=== PATIENT | male | born 1955 | race Caucasian/White ===

== ENCOUNTER → 2016-05-10 | Outpatient (CLI) | payer BC ==
[~2016-05-10] MED LIST: ACET-1256 PO; DIGECAP3 PO; GABA800T PO; IBUP-1050 PO; MELO15TA10 PO
[2016-05-10 10:55] LABS: BASO % 0.9 %; BASO ABS # 0.05 K/uL (0-0.2); COMPLETE YES; EOS % 3.1 %; HEMATOCRIT 43.5 % (42-52); IG% 0.2 %; LYMPH % 26.3 %; LYMPH ABS # 1.46 K/uL (1.2-3.4); MEAN CELL VOLUME 89.9 fL (80-100); MEAN CORPUSCULAR HEMOGLOBIN 30.2 pg (25-34); MEAN CORPUSCULAR HGB CONC 33.6 g/dl (32-36); MEAN PLATELET VOLUME 10.8 fL (7.4-10.4); MONO % 11.9 %; NEUT % 57.6 %; PLATELET COUNT 215 K/uL (130-400); RED BLOOD COUNT 4.84 M/uL (4.7-6.1); WHITE BLOOD COUNT 5.56 K/uL (4.8-10.8)
[2016-05-10 11:29] LABS: ALT/SGPT 21 U/L (12-78); AST/SGOT 18 U/L (15-37); BLOOD UREA NITROGEN 16 mg/dl (7-18); BUN/CREATININE RATIO 14.6 (10-20); CALCIUM 8.5 mg/dl (8.5-10.1); CARBON DIOXIDE 27 mmol/L (21-32); CHLORIDE 108 mmol/L (98-107); GLUCOSE 98 mg/dl (70-99); SODIUM 142 mmol/L (136-145)
[2016-05-10 11:40] LABS: ALKALINE PHOSPHATASE 94 U/L (45-117); CHOLESTEROL 146 mg/dl (0-200); CHOLESTEROL/HDL RATIO 3.3; HDL CHOLESTEROL 44 mg/dl; LDL CHOLESTEROL CALCULATED 85 mg/dl; TRIGLYCERIDES 84 mg/dl (0-150); VERY LOW DENSITY LIPOPROT CALC 17 mg/dl
== END | disposition home or self-care (01) ==
LOC: C.LABBC 08:38
PROVIDERS: ATTEND Nurse Practitioner Adult Health
DX: Z11.59 Encounter for screening for other viral diseases (principal); F32.9 Major depressive disorder, single episode, unspecified; F17.210 Nicotine dependence, cigarettes, uncomplicated; Z13.220 Encounter for screening for lipoid disorders

== ENCOUNTER → 2016-07-23 | Outpatient (CLI) | payer BC ==
[2016-07-23 13:34] LABS: BASO % 0.7 %; BASO ABS # 0.04 K/uL (0-0.2); COMPLETE YES; EOS % 2.4 %; HEMATOCRIT 43.8 % (42-52); IG% 0.2 %; LYMPH % 25.1 %; LYMPH ABS # 1.46 K/uL (1.2-3.4); MEAN CELL VOLUME 92.4 fL (80-100); MEAN CORPUSCULAR HEMOGLOBIN 29.7 pg (25-34); MEAN CORPUSCULAR HGB CONC 32.2 g/dl (32-36); MEAN PLATELET VOLUME 10.4 fL (7.4-10.4); MONO % 11.5 %; NEUT % 60.1 %; PLATELET COUNT 228 K/uL (130-400); RED BLOOD COUNT 4.74 M/uL (4.7-6.1); WHITE BLOOD COUNT 5.81 K/uL (4.8-10.8)
[2016-07-23 14:20] LABS: BLOOD UREA NITROGEN 16 mg/dl (7-18); BUN/CREATININE RATIO 14.3 (10-20); CARBON DIOXIDE 26 mmol/L (21-32); CHLORIDE 110 mmol/L (98-107); GLUCOSE 93 mg/dl (70-99); MAGNESIUM 2.4 mg/dl (1.8-2.4); SODIUM 144 mmol/L (136-145)
[2016-07-23 14:48] LABS: CALCIUM 8.6 mg/dl (8.5-10.1)
== END | disposition home or self-care (01) ==
LOC: C.LABBC 11:00
PROVIDERS: ATTEND Nurse Practitioner Family
DX: R07.89 Other chest pain (principal)

== ENCOUNTER → 2016-08-10 | Outpatient (CLI) | payer BC ==
--- NOTE | 2016-08-10 09:24 | DIAGNOSTIC IMAGING REPORT ---
THORACIC SPINE 3 VIEWS HISTORY: M54.9 Mid back painPt with c/o mid back pain, at intrascapular l COMPARISON: None. FINDINGS: There is no fracture. No subluxation. Flowing anterior osteophytes throughout the thoracic spine. Mild degenerative disc disease throughout the thoracic spine. Paraspinal soft tissues are unremarkable. IMPRESSION: No fracture or subluxation within the thoracic spine. Electronically signed by: Harvinder Cerda M.D. 08/10/2016 9:23 AM Dictated Date/Time: 08/10/2016 9:21 AM
== END | disposition home or self-care (01) ==
LOC: C.RADBC 08:40
PROVIDERS: ATTEND Family Medicine
DX: M54.9 Dorsalgia, unspecified (principal)

== ENCOUNTER → 2017-09-22 | Outpatient (CLI) | payer BC ==
[2017-09-22 10:04] LABS: BASO % 0.5 %; BASO ABS # 0.03 K/uL (0-0.2); EOS ABS # 0.12 K/uL (0-0.5); HEMOGLOBIN 14.3 g/dL (14.0-18.0); IG# 0.01 K/uL (0.00-0.02); LYMPH % 22.1 %; LYMPH ABS # 1.32 K/uL (1.2-3.4); MEAN CELL VOLUME 93.7 fL (80-100); MEAN CORPUSCULAR HEMOGLOBIN 31.2 pg (25-34); MEAN CORPUSCULAR HGB CONC 33.3 g/dl (32-36); MEAN PLATELET VOLUME 10.6 fL (7.4-10.4); MONO % 16.9 %; MONO ABS # 1.01 K/uL (0.11-0.59); NEUT % 58.3 %; NEUT ABS # 3.47 K/uL (1.4-6.5); PLATELET COUNT 200 K/uL (130-400); RED CELL DISTRIBUTION WIDTH CV 13.3 % (11.5-14.5); RED CELL DISTRIBUTION WIDTH SD 45.7 fL (36.4-46.3); WHITE BLOOD COUNT 5.96 K/uL (4.8-10.8)
== END | disposition home or self-care (01) ==
LOC: C.LAB 09:16
PROVIDERS: ATTEND Family Medicine
DX: M79.1 Myalgia (principal)

== ENCOUNTER → 2017-09-26 | Outpatient (CLI) | payer BC ==
[2017-09-26 13:03] LABS: BLOOD UREA NITROGEN 20 mg/dl (7-18); CALCIUM 8.9 mg/dl (8.5-10.1); CARBON DIOXIDE 24 mmol/L (21-32); CREATININE 1.04 mg/dl (0.60-1.40); GLUCOSE 108 mg/dl (70-99); POTASSIUM 4.3 mmol/L (3.5-5.1); SODIUM 137 mmol/L (136-145)
== END | disposition home or self-care (01) ==
LOC: C.LAB 10:37
PROVIDERS: ATTEND Family Medicine
DX: R74.8 Abnormal levels of other serum enzymes (principal)

== ENCOUNTER 2020-04-08 06:51 | Observation (INO) ==
--- NOTE | 2020-03-11 12:14 | Anesthesiology Consultation ---
Date of Service March 11, 2020 Assessment & Plan (1) Encounter for pre-operative examination: Chart Review Chart Review: Acceptable Risk for Surgery (pending preop Covid testing ) and Patient NOT seen in Pre Admission Testing Pt scheduled for bilateral knee replacements -Will leave to anesthesiologist discrection AM of surgery if repeat CXR needed secondary to Feb 2020 chest CTA findings - at PCP appt after CTA patient denied any significant breathing symptoms. Per nursing assessment 03/11/2020, patient denies any recent travel. No known Covid positive contacts or Covid related symptoms. Pt denies known Covid infection in the past 90 days. Pt scheduled for preop Covid testing 04/01/20= will await results. Seen by PCP 03/10/20= pt seen for right LE swelling. Was in the ER on 03/06/20 due to the leg swelling. CTA of chest negative for PE but did show some findings suggestive on bronchitis or reactive airway disease- pt denies any breathing issues or wheezing. No DVT noted but ultrasound did show probably complex Bakers cyst with leaking component. PCP recommends patient follow up with ortho- aware of upcoming knee surgery. Recommended elevation for right LE swelling. History Surgery Operation Date: 04/08/20 08:50 Proposed Procedures p Bilateral Total Knee Arthroplasty - Israel Retana MD Height/Weight Height: 5 ft 7 in Weight: 75.296 kg Allergies Allergy/AdvReac Type Severity Reaction Status Date / Time ragweed pollen Allergy Mild Congestion Verified 03/10/20 08:01 Sulfa (Sulfonamide Allergy Mild Pruritus, Verified 03/10/20 08:01 Antibiotics) anxiety Medications Home Medications Medication Instructions Recorded Confirmed Last Taken Lactobacillus 1 cap PO DAILY cap 07/27/18 03/11/20 Unknown acidophilus-Bifidobac.animalis 31 billion cell capsule diclofenac sodium 75 mg 75 mg PO Q12H #60 tab 06/08/19 03/11/20 Unknown tablet,delayed release gabapentin 800 mg tablet 800 mg PO TID #270 tab 10/17/19 03/11/20 Unknown Wheeled Walker #1 ea 01/21/20 03/11/20 Unknown ipratropium bromide 0.03 % nasal 2 spray INTRANASAL TID #90 ml 01/31/20 03/11/20 Unknown spray bupropion HCl 300 mg 24 hr tablet, 300 mg PO DAILY #90 tab 02/05/20 03/11/20 Unknown extended release tramadol 50 mg tablet 50 mg PO BID PRN #60 tab 02/11/20 03/11/20 Unknown ciclopirox 8 % topical solution 1 applic TOPICAL DAILY 28 Days 03/10/20 03/11/20 Unknown #6.6 ml triamcinolone acetonide 0.1 % 1 applic TOPICAL BID #15 g 03/10/20 03/11/20 Unknown topical cream Past Medical History Medical History ADHD (attention deficit hyperactivity disorder), combined type Allergic rhinitis Anxiety and depression BPH (benign prostatic hyperplasia) occasional incontinence Cervical spondylolysis Disc degeneration, lumbar Hearing difficulty of both ears History of IBS Sciatic leg pain on gabapentin Past Family History Family History Mother Alzheimer disease Low back pain associated with a spinal disorder other than radiculopathy or spinal stenosis Father Cardiac disorder Other No family history of adverse response to anesthesia Denies family history of Colon cancer Ovarian cancer Prostate cancer Myocardial infarction Breast cancer Past Surgical History Surgical History History of appendectomy History of colonoscopy History of herniorrhaphy right inguinal hernia repair (done with appe) Social History Smoking Status: Former smoker tobacco type: cigarettes Do You Dip or Chew Tobacco: No Smoking End Date: quit 12/2019 Hx Alcohol Use: Yes Alcohol type: beer, wine and hard liquor alcohol intake frequency: 0-2 drinks per day Alcohol Intake Frequency Comment: 1.5 drinks daily Hx Substance Use: No substance use type: does not use Testing Laboratory Results Laboratory Tests 03/06/20 03/06/20 03/06/20 19:14 19:14 21:13 WBC 5.28 Hgb 13.9 L Hct 42.7 Plt Count 221 PT 10.4 INR 1.0 APTT 29.6 Sodium 141 Potassium 4.0 Chloride 110 H Carbon Dioxide 29 BUN 19 H Creatinine 0.95 Glucose 102 H Electrocardiogram Date: 03/06/20 Findings: + NSR @ (68 bpm) Nonspecific T wave abnormality. Chest X-Ray Date: 01/21/20 Mild interstitial thickening at the lung bases. This is likely chronic. Otherwise, lungs are clear. No pleural effusions. No pneumothorax. Mild cardiomegaly. Other Testing Chest CTA 03/06/20= Mild cardiomegaly without evidence of pulmonary emboli. Bronchial wall thickening suggestive of bronchitis versus reactive airway disease. Mild mediastinal and hilar adenopathy, likely on a reactive basis.
--- NOTE | 2020-04-05 12:08 | History and Physical Report ---
DATE OF ADMISSION: 04/08/2020 CHIEF COMPLAINT: Bilateral knee pain and discomfort. HISTORY OF PRESENT ILLNESS: The patient is a 64-year-old gentleman who presents specifically for surgical treatment of both knees. He has got a long history of bilateral knee pain and discomfort followed by my partner, Dr. Stack and then more recently by myself. He has been managing this with oral medicines which have become less successful over time. He did develop some purpura and had to go off of it. Pain has just gotten worse. He has had injections which provided very temporary relief only. He has had trouble maintaining any degree of meaningful and active lifestyle due to his pain. The right knee is a little bit more painful than the left, but both are significantly debilitating. No groin pain. No fevers. PAST MEDICAL HISTORY: History of sciatica. PAST SURGICAL HISTORY: Include: 1. Herniorrhaphy. 2. Appendectomy. ALLERGIES: SULFA. CURRENT MEDICATIONS: Include: 1. Bupropion. 2. Diclofenac. 3. Gabapentin. 4. Ipratropium. 5. Lactobacillus. 6. Tramadol. SOCIAL HISTORY: This is a 64-year-old male. He is from [place]. Six drinks per week. Does not smoke. FAMILY HISTORY: Noncontributory. REVIEW OF HISTORY: Negative for diabetes, neurologic problem, vascular problems or bleeding disorders. No chest pain or shortness of breath. No history of DVT or PE. No known bleeding problems. PHYSICAL EXAMINATION: GENERAL: Shows a pleasant, middle-aged male, looks to be in excellent health. HEENT: Benign. NECK: Supple, no lymphadenopathy. LUNGS: Clear to auscultation. HEART: Regular rate and rhythm. ABDOMEN: Soft, nontender, nondistended. EXTREMITIES: Grossly neurovascularly intact except as follows. Examination of both knees reveals the patient ambulates with a varus alignment to his knees with varus thrust bilaterally. Examination of the left knee reveals varus deformity. He has got bony hypertrophy medially. Some moderate knee effusion. Range of motion is 5-120. No instability. No pain with hip motion. Examination of the right knee reveals similar varus deformity. He has got bony hypertrophy medially. Small knee effusion. Range of motion is 10-120. No instability. X-RAYS: X-rays of both knees were reviewed. Shows advanced bilateral knee DJD. He has got complete loss of his medial joint space. He has got some fragmentation in AVN, changes of the medial femoral condyle in both knees. He has got some chronic tibial subluxation suggestion of a chronic ACL tear. 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 He has failed conservative treatment and would like to have both knees replaced. He does have a history of purpura, but is taking NSAIDs regardless. No known bleeding problems. PLAN: We are going to take him to the operating room and do bilateral knee replacements. The risks and benefits of this procedure were explained to the patient including but not limited to DVT, PE, , infection, neurological injury, vascular injury, bleeding problems, pain, persistent pain, need for revision surgery in the future, fracture, leg length inequality, nerve palsy, etc. The patient understands and desires to proceed. Informed consent was obtained. We will likely try some Toradol postoperatively. We will have to keep an eye on this purpura issue. He is planning to be discharged to home and do outpatient therapy. He has a lady who works at [employer] that may do some in-home therapy.
[~2020-04-08 06:51] MED LIST changes: -ACET-1256 PO; +ACETAMINOPHEN 500 MG TAB PO SCH; +BUPIVACAINE 0.5 % 5 MG/1 ML PF 10ML VIAL ONE; +BUPIVACAINE LIPOSOME/PF 266 MG, BUPIVACAINE/EPINEPHRINE 50 ML, SODIUM CHLORIDE 0.9% 30 ... INFIL SCH; -DIGECAP3 PO; +EPINEPHrine INJ 1 MG/ML AMP ONE; +FAMOTIDINE 20 MG TAB PO SCH; -GABA800T PO; +GABAPENTIN 300 MG CAP PO SCH; -IBUP-1050 PO; +LR 500ML BOLUS, THEN 15ML/HR IV SCH; +LR 60ML/HR IV SCH; -MELO15TA10 PO; +METOCLOPRAMIDE HCL 10 MG TABLET PO SCH; +ROPIVACAINE 0.5% 5 MG/ML 30 ML VIAL ONE; +TRANEXAMIC ACID 1,000 MG **IV Intra-op IV SCH; +ceFAZolin 2000MG 2,000 MG/15 ML SYR IV SCH
[2020-04-08] MEDS ORDERED: PROPOFOL IV EMULSION 10 MG/ML 20 ML VIAL IV ONE (08:17)
[2020-04-08] MEDS ORDERED: MIDAZOLAM HCL 1 MG/ML 2ML VIAL ONE ×2 (08:18→10:24)
[2020-04-08] MEDS ORDERED: ePHEDrine sulfate 50 MG/ML AMP IV PRN (08:28)
[2020-04-08] MEDS ORDERED: PHENYLEPHRINE 100MCG/ML 5ML SYR IV PRN (08:28)
[2020-04-08] MEDS ORDERED: ATROPINE SULFATE 0.1 MG/ML 10ML SYR IV PRN (08:28)
[2020-04-08] MEDS ORDERED: fentaNYL citrate 100 MCG/2 ML VIAL IV PRN (08:28)
[2020-04-08] MEDS ORDERED: MEPERIDINE HCL 25 MG/ML CARP/VIAL IV PRN (08:28)
[2020-04-08] MEDS ORDERED: ONDANSETRON INJ 2 MG/ML 2 ML VIAL IV PRN ×2 (08:28→14:42)
[2020-04-08] MEDS ORDERED: HYDROmorphone INJ 1 MG/ML SYRINGE IV PRN (08:28)
[2020-04-08] MEDS ORDERED: LABETALOL HCL IV 5 MG/ML 20ML IV PRN (08:28)
[2020-04-08] MEDS ORDERED: ROPIVACAINE 0.5% 5 MG/ML 30 ML VIAL ONE (08:45)
--- NOTE | 2020-04-08 08:48 | History & Physical Bridge Note ---
Date of Service April 08, 2020 History & Physical Bridge Note I have examined the patient, reviewed the History & Physical and in the interval since the performance of the History & Physical I have noted the following changes of clinical significance: no changes noted
[2020-04-08] MEDS ORDERED: SODIUM CHLORIDE 0.9% PF 50 ML VIAL ONE (08:57)
[2020-04-08] MEDS ORDERED: EPINEPHrine INJ 1 MG/ML AMP ONE ×2 (08:58→09:28)
[2020-04-08] MEDS ORDERED: BUPIVACAINE 0.25% 30 ML VIAL ONE (08:58)
[2020-04-08] MEDS ORDERED: BACITRACIN INJ 50,000 UNIT VIAL ONE ×2 (08:58)
[2020-04-08] MEDS ORDERED: BUPIVACAINE LIPOSOME 1.3% 266 MG/20 ML VIAL ONE (08:58)
[2020-04-08] MEDS ORDERED: fentaNYL citrate 100 MCG/2 ML VIAL ONE (10:31)
--- NOTE | 2020-04-08 12:46 | Post Operative Brief Note ---
PG Immediate Post Op with CF Date of Surgery April 08, 2020 Pre & Post Diagnosis Operation Date: 04/08/20 08:50 Pre-Op Diagnosis: Bilateral Knee Advanced Degenerative Joint Disease Post-Op Diagnosis: Bilateral Knee Advanced Degenerative Joint Disease I identified the patient and participated in the time-out.: Yes Procedure Operation Date: 04/08/20 08:50 Actual Procedures p Bilateral Total Knee Arthroplasty(Bilateral) - Israel Retana MD Surgeon Israel Retana MD Fire Control Mechanic KIERSTEN Blue Estimated Blood Loss 200 Findings Consistent with Post-Op Diagnosis Fluids 1300 cc Specimens Specimen Description: A. Left Knee Bone and Tissue B. Right Knee Bone and Tissue Drains Burgos Catheter Anesthesia Type Spinal MAC Complications none Disposition Accompanied Patient To Recovery: No Disposition: Recovery Room
--- NOTE | 2020-04-08 13:07 | Anesthesiology Progress Note ---
Date of Service April 08, 2020 Anesthesia Post Procedure Vital Signs Vital Signs: Temp Pulse Pulse Resp BP Pulse Ox 04/08/20 13:00 60 17 113/72 97 04/08/20 12:50 63 15 107/78 100 04/08/20 12:41 36.2 C L 59 L 16 88/60 L 100 04/08/20 07:16 36.7 C 72 18 117/76 97 Pain Intensity Bilateral Knee: Pain Intensity: 0 Transfer of Care Handoff Completed per policy Notes Mental Status: alert / awake / arousable Patient Amnestic to Procedure: Yes Nausea / Vomiting: adequately controlled Pain: adequately controlled Airway Patency, RR, SpO2: stable & adequate BP & HR: stable & adequate Hydration State: stable & adequate Neuraxial Anesthesia: was administered and sensory block is resolving Anesthetic Complications: no major complications apparent and Pt Satisfied with anesthetic care
--- NOTE | 2020-04-08 13:13 | Operative Report ---
Post Operative Report Pre & Post Diagnosis Operation Date: 04/08/20 08:50 Pre-Op Diagnosis: Bilateral Knee Advanced Degenerative Joint Disease Post-Op Diagnosis: Bilateral Knee Advanced Degenerative Joint Disease I identified the patient and participated in the time-out.: Yes Procedure Operation Date: 04/08/20 08:50 Actual Procedures p Bilateral Total Knee Arthroplasty(Bilateral) - Israel Retana MD Surgeon Israel Retana MD Bods Developer KIERSTEN Blue Estimated Blood Loss 200 Findings Consistent with Post-Op Diagnosis Operative findings revealed advanced bilateral knee DJD. He had extensive grade 4 [id number] disease of the medial compartments of both knees with fixed varus deformities and about 10 degree flexion contractures bilaterally. He had very stiff knees. Osteophytes in all 3 compartments. Moderate-sized effusion bilaterally. Fluids 1300 cc. Specimens Bilateral knee sent for pathology. Drains None. Anesthesia Type Spinal MAC Complications none Disposition Accompanied Patient To Recovery: No Disposition: Recovery Room Indications Patient is a 65-year-old gentleman said a long history of bilateral knee pain discomfort and deformity has got really gotten worse over the years. He failed all conservative measures. X-ray showed advanced bilateral knee DJD. He was strongly desiring to have both knees done at the same time. Description of Procedure Left sided operative implants consist of: 1. Biomet Vanguard size 65 left posterior stabilized femoral component. 2. Biomet size 71 tibial tray. 3. 12 mm posterior stabilized polyethylene insert. 4. 31 x 8 all polypatella. Right side implants consisted of: 1. Biomet Vanguard size 67.5 right posterior stabilized femoral component. 2. Biomet size 71 tibial tray. 3. 10 mm posterior stabilized polyethylene insert. 4. 31 x 8 all polypatella. The patient was taken to the operating room identified placed on the operating table supine position but all contact areas were properly padded IV antibiotics tried by anesthesia team. A spinal anesthetic and abductor canal blocks were provided holding area. A Burgos catheter was placed in sterile fashion. Bilateral thigh tourniquet was placed in both lower extremities and prepped draped in usual sterile fashion. Attention was first drawn to the left leg. Left leg was elevated exsanguinated with use of an Esmarch and tourniquet placed at 300 mmHg. An anterior approach left knee was then performed through longitudinal incision centered over the patella. Sharp dissection was got through subcutaneous tissue down to the extensor mechanism. A medial parapatellar arthrotomy incision was made. Subperiosteal dissection was carried out medially. He had a chronic ACL deficiency and we had a very tight posterior medial side so we did release quite a bit of the medial and posterior medial tibia. The fat pad was resected beneath patella tendon. The ACL was absent. The PCL was released from the distal femur and the tibia subluxated anteriorly. The external tibial alignment jig was then placed in the interface the tibia and adjusted 14 mm medially. Proximal tibial cut was made a millimeter or 2 above the most deficient aspect of the posterior medial tibial plateau. He had a lot of posterior medial wear. Some large osteophytes were taken off medially. The tibia sized to a size 71 in order to get proper tibial rotation. Attention drawn the femur. The distal femur then with a sharp drop with intramedullary canal was suction. A left 6 degree valgus cutting guide was placed. Distal femoral cutting block was pinned in place. Distal femoral cut was made to take an additional 3 mm of bone off distal femur. The femur was then sized to a size 65. The AP cutting block was pinned parallel to the epicondylar axis which was 5 degrees of external rotation. The anterior cut, anterior chamfer, posterior cut, posterior chamfer cuts were made. Box cutting guide was placed in just slight lateral and the box cut was made. The knee was flexed. The remnants of the medial lateral menisci were excised. The osteophytes were taken off the posterior aspect the femur. Trial femoral component was placed for the tibial tray was pinned in maximum external rotation and the drill and stem punch used to create defect in proximal tibia for the tibial tray. Knee was then trialed and the 12 mm insert fit most appropriately. Attention drawn the patella. The patella was cleaned of all soft tissue. Patella thickness measured 25 mm in thickness cut down to 15. Was sized to a size 31 patella. The lug holes were drilled for 31 patella. The lateral osteophyte is moved. Patella button was placed. Knee was taken through range of motion patella tracked nicely with no thumbs test. Attention turned to placing permanent components. All trial components were removed. A bone plug was placed in the distal femur limit blood loss. L batch Palacos G cement was mixed. Beautified[place]ale size 65 left posterior stabilized femoral component, size 71 tibial tray, 12 mm posterior stabilized polyethylene insert, and a 31 x 8 all polypatella then cemented in place. Knee was brought out in full extension total cement hardened. Final cement check was then performed. Pericapsular tissues were injected with total of 50 cc of a combination of 20 cc of Exparel, 15 cc of normal saline, 25 cc of half percent Marcaine with epinephrine. Patient did receive 1 g tranexamic acid. The tourniquet was then let down for a left-sided tourniquet time 59 minutes. Hemostasis assured use electrocautery. The extensor mechanism closed with combination 1 PDS suture #1 Vicryl suture in a f [id number] fashion. Extensor mechanism checked found to be intact the subcutaneous tissue then closed with 2 Dexon suture buried nerve fascia skin was closed skin declan. Leg was then cleaned and dried and sterile dressing both Xeroform, 4 x 4's, sterile cast padding and Carmine bandage were applied. During closure of the subcutaneous tissues and skin of the left knee a similar procedure was begun on the right leg. The right leg was only exsanguinated with use of Esmarch interspace at 300 mmHg. An anterior approach to the right knee was then performed to longitudinal incision centered over the patella. Sharp dissection was carried through subcutaneous tissue down the extensor mechanism. A medial parapatellar arthrotomy incision was made. Extensive dissection was carried out medial and posterior medially due to his flexion contracture and his fixed varus deformity. The fat pad was resected from each patella tendon. Lateral patellofemoral ligament was released. Patella was subluxated laterally and the knee was flexed. The ACL was absent. The the PCL was released from distal femur. The tibia subluxated anteriorly. The external tibial alignment jig was then placed in the interface the tibia and adjusted 14 mm medially. Proximal tibial cut was made a little above the most deficient aspect medial till plateau. Some large osteophytes were taken off medial and posterior medially. Tibia sized to a size 71. Attention drawn the femur. The distal femur stem with a sharp drill. Intramedullary canal was suction. A right 6 degree valgus cutting guide was placed. Distal femoral cutting block was pinned in place. Distal femoral cut was made to take an additional 3 mm of bone off distal femur. The femur was then sized to a size 67.5. The AP cutting block was pinned parallel to the epicondylar axis which was 4 degrees of external rotation. Anterior cut, anterior chamfer, posterior cut, posterior chamfer cuts were made. Box cutting guide was placed in a just slight lateral box cut was made. The knee was flexed. The remnants of the medial lateral menisci were excised. The osteophytes were taken off the posterior aspect of the femur. A trial femoral component was placed. The tibial tray was pinned in maximum external rotation and the drill and stem punch were used to create defect in proximal to for the tibial tray. Knee was then trialed the 10 mm insert fit most appropriately. Attention drawn the patella. Patella was cleaned of all soft tissue. Patella thickness measured 24 mm in thickness was cut down to 15. Was sized to a size 31 patella. Lug holes were drilled for 31 patella. The lateral osteophyte is moved. Patella button was placed. Knee was taken through range of motion patella tracked nicely with no thumbs test. Attention drawn to placing the permanent components. All trial components removed. Bone plug was placed in the distal femur limit blood loss put a double batch Palacos G cement was mixed. Biomet Vanguard size 67.5 right posterior stabilized femoral component, size 71 tibial tray, a 10 mm posterior stabilized polyethylene insert, and a 31 x 8 all polypatella then cemented in place. The knee was brought out in full extension total cement hardened. Final cement check was then performed. Pericapsular tissues were injected with 50 cc of combination 10 cc of Exparel, 15 cc of normal saline, 25 cc of half percent Marcaine with epinephrine. The tourniquet on this side was let down. The wound was irrigated. Hemostasis assured use electrocautery. Extensor mechanism closed with combination 1 PDS suture #1 Vicryl suture in [id number] fashion. Extensor mechanism checked found to be intact the subcutaneous tissue then closed with 2 Dexon suture in a buried and fashion skin was closed with skin declan. A sterile dressing composed Xeroform, 4 x 4's, sterile cast padding, Carmine bandage were applied. Patient was then transferred to the recovery room in stable condition. Patient tolerated the procedure well and no complications. Satnam Blue, my physician medical billing assistant, was present for the entire procedure. His assistance was essential and required for appropriate patient positioning, pre pping and draping, surgical exposure, performing the technical details of the operation, placement the implants, closure of the wound, and placement of the sterile bandage. I attest to the content of the Intraoperative Record and any orders documented therein. Any exceptions are noted below.
--- NOTE | 2020-04-08 13:30 | XRay Report ---
RIGHT KNEE 2 VIEWS History: Right total knee arthroplasty. Degenerative arthritis. Postop. FINDINGS: The patient is status post a right total knee arthroplasty. The hardware is intact. No frac ture or dislocation. Skin declan are in place. IMPRESSION: Right total knee arthroplasty. No evidence for hardware complication. ACT 112: Negative or not required by law. Electronically signed by: Harvinder Cerda M.D. 04/08/2020 1:28 PM
--- NOTE | 2020-04-08 13:30 | XRay Report ---
LEFT KNEE 2 VIEWS History: Left total knee arthroplasty. Degenerative arthritis. Postop. FINDINGS: The patient is status post a left total knee arthroplasty. The hardware is intact. No fract ure or dislocation. Skin declan are in place. IMPRESSION: Left total knee arthroplasty. No evidence for hardware complication. ACT 112: Negative or not required by law. Electronically signed by: Harvinder Cerda M.D. 04/08/2020 1:29 PM
[2020-04-08] MEDS ORDERED: bisacodyL 10 MG SUPP PR PRN (14:42)
[2020-04-08] MEDS ORDERED: NALOXONE HCL 0.4 MG/1 ML VIAL/CARP IV PRN (14:42)
[2020-04-08] MEDS ORDERED: TAMSULOSIN HCL 0.4 MG CAP PO PRN (14:42)
[2020-04-08] MEDS ORDERED: ALUMINUM/MAGNESIUM SUSP 30 ML UDC PO PRN (14:42)
[2020-04-08] MEDS ORDERED: MAGNESIUM HYDROXIDE SUSP 30 ML UDC PO PRN (14:42)
[2020-04-08] MEDS ORDERED: METOCLOPRAMIDE HCL INJ 5 MG/ML 2 ML VIAL IV PRN (14:42)
[2020-04-08] MEDS ORDERED: HYDROmorphone INJ 0.5 MG/0.5 ML SYR IV PRN (14:42)
[2020-04-08] MEDS: SODIUM CHLORIDE 0.9% 1000ML 1,000 ML IV SCH (15:30)
[2020-04-08] MEDS: Scopolamine CHECK PATCH PLACEMENT SCH (15:41)
[2020-04-08] MEDS: ACETAMINOPHEN 500 MG TAB PO SCH ×2 (15:46→22:59)
[2020-04-08] MEDS: GABAPENTIN 800 MG TAB PO SCH ×2 (15:46→20:05)
[2020-04-08] MEDS: KETOROLAC TROMETHAMINE 15 MG/ML VIAL IV SCH ×2 (15:50→23:07)
[2020-04-08] MEDS: ceFAZolin 1000MG 1,000 MG/7.5 ML SYR IV SCH (16:02)
[2020-04-08] MEDS: ASCORBIC ACID 500 MG TAB PO SCH (16:05)
[2020-04-08] MEDS: FERROUS GLUCONATE 324 MG TAB PO SCH (16:05)
[2020-04-08] MEDS ORDERED: TRANEXAMIC ACID / 0.7% NACL 1,000 MG/100 ML BAG IV SCH (18:51)
[2020-04-08] MEDS: traMADol HCL 50 MG TABLET PO PRN (19:57)
[2020-04-08] MEDS: DOCUSATE SODIUM 100 MG CAP PO SCH (20:05)
[2020-04-08] MEDS: SENNA 8.6 MG TAB PO SCH (20:06)
[2020-04-08] MEDS: TRIAMCINOLONE ACET 0.1% CR 15 GM TUBE TOP SCH (20:07)
[2020-04-08] MEDS: ASPIRIN 81 MG ECTAB PO SCH (20:10)
[2020-04-09] MEDS: SODIUM CHLORIDE 0.9% 1000ML 1,000 ML IV SCH (00:28)
[2020-04-09] MEDS: ceFAZolin 1000MG 1,000 MG/7.5 ML SYR IV SCH (00:29)
[2020-04-09] MEDS: KETOROLAC TROMETHAMINE 15 MG/ML VIAL IV SCH ×4 (05:00→21:31)
[2020-04-09] MEDS: Scopolamine CHECK PATCH PLACEMENT SCH ×4 (05:03→23:53)
[2020-04-09] MEDS: ACETAMINOPHEN 500 MG TAB PO SCH ×3 (05:05→21:30)
[2020-04-09 07:01] LABS: Hematocrit (blood only) 32.1 % (42-52); Hemoglobin 10.9 g/dL (14.0-18.0); Mean Corpuscular Hemoglobin 30.8 pg (25-34); Mean Corpuscular Volume 90.7 fL (80-100); Mean Platelet Volume 10.1 fL (7.4-10.4); Platelet Count 199 K/uL (130-400); RDW Coefficient of Variation 12.7 % (11.5-14.5); RDW Standard Deviation 42.4 fL (36.4-46.3); Red Blood Count 3.54 M/uL (4.7-6.1); White Blood Count 7.75 K/uL (4.8-10.8)
[2020-04-09 07:30] LABS: BUN Creatinine Ratio 17.4 (10-20); Calcium 8.1 mg/dl (8.5-10.1); Creatinine Clr Calc Pharmacy 81.9 ml/min; Est GFR (African American) 106.3; Est GFR (Non-African American) 91.7; Potassium 3.7 mmol/L (3.5-5.1)
[2020-04-09] MEDS: buPROPion XL 300 MG TABCR PO SCH (07:53)
[2020-04-09] MEDS: ASCORBIC ACID 500 MG TAB PO SCH ×2 (07:53→17:38)
[2020-04-09] MEDS: FERROUS GLUCONATE 324 MG TAB PO SCH ×2 (07:53→17:38)
[2020-04-09] MEDS: ASPIRIN 81 MG ECTAB PO SCH ×2 (07:53→20:04)
[2020-04-09] MEDS: DOCUSATE SODIUM 100 MG CAP PO SCH ×2 (07:53→20:03)
[2020-04-09] MEDS: GABAPENTIN 800 MG TAB PO SCH ×3 (07:53→20:04)
[2020-04-09] MEDS: MULTIVITAMIN TAB PO SCH (07:53)
[2020-04-09] MEDS: ADVANCED PROBIOTIC 1250 MG CAPSULE PO SCH (07:53)
[2020-04-09] MEDS: TRIAMCINOLONE ACET 0.1% CR 15 GM TUBE TOP SCH ×2 (07:53→20:04)
[2020-04-09] MEDS ORDERED: dexAMETHasone 4 MG TAB PO SCH (08:00)
--- NOTE | 2020-04-09 08:49 | Progress Notes ---
DATE: 04/09/2020 SUBJECTIVE: A 65-year-old gentleman postop day 1 from bilateral knee replacements. He has been a bit confused overnight. Still seems to be a little bit confused, but he is alert, oriented and recognizes me and seems pretty appropriate. He is having some knee pain. Denies any chest pain or shortness of breath. Not feeling dizzy or lightheaded. OBJECTIVE: VITAL SIGNS: Temperature 36.4. Vital signs stable. GENERAL: Shows a pleasant, middle-aged male. He is kind of looks a little bit irritated and irritable. He is moving around in bed decent amount. Does not look particularly uncomfortable. LUNGS: Clear to auscultation. HEART: Has a regular rate and rhythm. ABDOMEN: Soft, nontender, nondistended. EXTREMITIES: Grossly neurovascularly intact except as follows. Examination of both lower extremities reveals the dressing to be clean, dry and intact. Legs look well aligned. He can dorsiflex and plantarflex both feet appropriately. He is neurologically intact. LABORATORY DATA: Hemoglobin is 10.9. Hematocrit of 32.1. Electrolytes are stable. ASSESSMENT: A 65-year-old gentleman postop day 1 from bilateral knee replacements, doing reasonably well. He was a little bit confused overnight. Still seemed just a trace bit off, but also having a decent amount of pain and just seems to be a little bit irritable. PLAN: 1. DVT prophylaxis including thigh-high TEDs, SCDs, and aspirin twice a day. 2. PT/OT. Weight bear as tolerated. Bilateral total knee protocol. 3. Pain control, doing okay with current pain regimen. We are going to need to limit his pain medicines if he is confused. We will use Tylenol and Toradol. 4. Disposition: He is hoping to be discharged to home with some home health and his 's assistance. We will have to see how he does in therapy.
[2020-04-09] MEDS: traMADol HCL 50 MG TABLET PO PRN (11:36)
[2020-04-09] MEDS: SENNA 8.6 MG TAB PO SCH (20:04)
[2020-04-10] MEDS: KETOROLAC TROMETHAMINE 15 MG/ML VIAL IV SCH ×2 (05:12→10:21)
[2020-04-10] MEDS: ACETAMINOPHEN 500 MG TAB PO SCH ×2 (05:13→13:53)
[2020-04-10] MEDS: Scopolamine CHECK PATCH PLACEMENT SCH (08:58)
[2020-04-10] MEDS: DOCUSATE SODIUM 100 MG CAP PO SCH (09:01)
[2020-04-10] MEDS: buPROPion XL 300 MG TABCR PO SCH (09:02)
[2020-04-10] MEDS: TRIAMCINOLONE ACET 0.1% CR 15 GM TUBE TOP SCH (09:02)
[2020-04-10] MEDS: ADVANCED PROBIOTIC 1250 MG CAPSULE PO SCH (09:03)
[2020-04-10] MEDS: FERROUS GLUCONATE 324 MG TAB PO SCH (09:03)
[2020-04-10] MEDS: ASPIRIN 81 MG ECTAB PO SCH (09:03)
[2020-04-10] MEDS: ASCORBIC ACID 500 MG TAB PO SCH (09:03)
[2020-04-10] MEDS: MULTIVITAMIN TAB PO SCH (09:03)
[2020-04-10] MEDS: GABAPENTIN 800 MG TAB PO SCH ×2 (09:04→13:52)
[2020-04-10] MEDS: traMADol HCL 50 MG TABLET PO PRN (10:21)
--- NOTE | 2020-04-10 15:51 | Progress Notes ---
DATE: 04/10/2020 SUBJECTIVE: A 65-year-old gentleman postop day 2 from bilateral knee replacements. He is doing pretty well. Much more awake, alert and appropriate today. Therapy has gone reasonably well. His pain has been acceptably controlled. OBJECTIVE: VITAL SIGNS: Temperature 37.2. Vital signs are stable. GENERAL: Shows a pleasant, middle-aged male. He is sitting up in bed and looks quite comfortable. EXTREMITIES: Examination of both legs revealed the legs to be well aligned. Dressings are clean, dry and intact. Calves are soft and supple bilaterally. He can dorsiflex and plantarflex both feet appropriately. ASSESSMENT: A 65-year-old gentleman postoperative day 2 from bilateral knee replacements, doing reasonably well. He had a little confusion initially, but no signs of residual. His pain is controlled. He is neurologically intact. PLAN: 1. DVT prophylaxis including thigh-high TEDs, SCDs, and aspirin twice a day. 2. PT/OT. Weight bear as tolerated. Bilateral total knee protocol. 3. Pain control, doing okay with current pain regimen. 4. Disposition: Plan to discharge to home with some home health once adequately recovered and medically stable hopefully later on today if he does okay in therapy.
--- NOTE | 2020-04-13 09:45 | Discharge Summary ---
Date of Service April 13, 2020 Discharge Data Consultations 04/08/20 14:42 Consult Case Management - Discharge Planning Routine Procedures Performed Operation Date: 04/08/20 08:50 Actual Procedures p Bilateral Total Knee Arthroplasty(Bilateral) - Israel Retana MD Hospital Course (1) Status post total bilateral knee replacement: This patient is a 65 year old male admitted on 04/08/20 and underwent bilateral total knee arthroplasty. He tolerated the procedure well and there were no complications. Transferred to the PACU post op and later to the orthopedic floor for further care. He was given ancef for antibiotic prophylaxis. He was also given YANNICK stockings, SCDs, and aspirin for DVT prophylaxis. Hemoglobin, hematocrit, and vital signs were monitored during his hospital stay and remained stable. Did not require any blood transfusions. There were no complications during his hospital stay. By post op day #2 the patient was tolerating a regular diet, pain was reasonably controlled with oral pain medicine, and he was participating in physical therapy. On post op day #2 the patient was discharged home and set up with home health care. He was given printed discharge instructions including prescriptions for extra strength tylenol, aspirin, iron supplement, and oxycodone. Continue physical therapy, weight bearing as tolerated. Continue YANNICK stockings. Follow up approximately 2 weeks post op or sooner if there are problems or concerns. Coding Level of Care Code None Diagnoses Status post total bilateral knee replacement Z96.653
== END 2020-04-10 15:02 | disposition home health service (06) ==
LOC: ASU 06:51 → 3W 06:51